=== PATIENT | male | born 2000 | race Hispanic/Latino ===

== ENCOUNTER 2023-12-05 22:56 | Emergency (ER) | payer BC ==
[2023-12-05] MEDS ORDERED: Lidocaine 1% (PF) 30 ML VIAL ONE (23:52)
[2023-12-06] MEDS ORDERED: Ketorolac Tromethamine 30 MG (1 mL) VIAL ONE (00:37)
== END 2023-12-06 00:42 | disposition home or self-care (01) ==
LOC: CSHERS 22:56
DX: L05.01 Pilonidal cyst with abscess (principal)
CPT/HCPCS: 10080; 96372; J1885; J2001